=== PATIENT | male | born 1980 | race Two or more races ===

== ENCOUNTER 2018-09-08 13:55 | Emergency (ER) | payer SELFPAY ==
[2018-09-08 14:40] VITALS: BP 145/93
== END 2018-09-08 15:38 | disposition left against medical advice (07) ==
LOC: ER 13:55
DX: M54.2 Cervicalgia (principal); M54.9 Dorsalgia, unspecified; Z53.21 Procedure and treatment not carried out due to patient leaving prior to being seen by health care provider; V43.62XA Car passenger injured in collision with other type car in traffic accident, initial encounter; Y93.89 Activity, other specified; Y99.8 Other external cause status; Y92.410 Unspecified street and highway as the place of occurrence of the external cause